=== PATIENT | female | born 1940 | race Caucasian/White ===

== ENCOUNTER 2018-08-02 11:56 | Emergency (ER) | payer OTHER, MEDICAID ==
[~2018-08-02] VITALS: Ht 154.9 cm; Wt 64.9 kg
[2018-08-02] MEDS ORDERED: NORCO 5-325 TA1 EACH PO (13:46)
[2018-08-02 13:49] VITALS: BP 177/84
== END 2018-08-02 13:49 | disposition home or self-care (01) ==
LOC: M.ERS 11:56
DX: S52.591A Other fractures of lower end of right radius, initial encounter for closed fracture (principal); W00.0XXA Fall on same level due to ice and snow, initial encounter; Y92.89 Other specified places as the place of occurrence of the external cause; Y93.01 Activity, walking, marching and hiking; Y99.8 Other external cause status